=== PATIENT | female | born 1980 | race Caucasian/White ===

== ENCOUNTER 2020-01-28 12:01 | Emergency (ER) | payer BC, SELFPAY ==
[2020-01-28] VITALS (8 sets, daily range): BP systolic 128–197; BP diastolic 96–121; PULSE 82–103; RESP 15–20; TEMP 36.4–36.8; O2SAT 98–100
--- NOTE | 2020-01-28 12:30 | ECG_ITS ---
Measurements Intervals [place] Rate: 91 P: 16 ID: 133 QRS: -14 QRSD: 93 T: 23 QT: 350 QTc: 432 Interpretive Statements SINUS RHYTHM LOW QRS VOLTAGE IN PRECORDIAL LEADS VOLTAGE CRITERIA FOR LVH MINIMAL Q WAVES- HIGH LATERAL LEADS BORDERLINE ECG Electronically Signed On 01-28-2020 13:13:21 CDT by Reji Hughes D.O.
[2020-01-28] MEDS: ASPIRIN 81 MG CHEWABLE TABLET 324 MG PO (12:45)
[2020-01-28 12:47] LABS: Basophils Absolute Auto 0.1 K/mm3 (0.0-0.1); Eosinophils Absolute Auto 0.2 K/mm3 (0-0.3); Eosinophils Percent Auto 1.9 % (0-4.4); Hematocrit 39.7 % (37.0-47.0); Hemoglobin 13.5 g/dL (12.0-15.0); Immature Granulocyte Absolute 0.02 K/mm3 (0.00-0.031); Immature Granulocyte Percent A 0.3 % (0-0.5); Lymphocytes Absolute Auto 2.23 K/mm3 (0.9-3.2); Lymphocytes Percent Auto 28.8 % (18.3-44.2); Mean Corpuscular Volume 85.4 fl (80-100); Mean Platelet Volume 10.4 fl (7.4-10.4); Monocytes Absolute Auto 0.4 K/mm3 (0.1-0.6); Monocytes Percent Auto 4.8 % (2.6-8.5); Neutrophils Absolute Auto 4.9 K/mm3 (1.3-6.7); Neutrophils Percent Auto 63.2 % (45.5-73.1); Platelet Count Result 414 k/mm3 (150-375); Red Blood Count 4.65 M/mm3 (4.2-5.4); Red Cell Distribution Width 13.7 % (11.5-14.5); White Blood Count 7.8 K/mm3 (4.5-10.0)
[2020-01-28 12:49] LABS: Add Urine Microscopic? NO; Appearance Urine Clear (Clear); Bilirubin Urine Negative (Negative); Blood Urine Negative (Negative); Color Urine Yellow (Yellow); Glucose Urine UA Negative (Negative); Ketones Urine Negative (Negative); Leukocyte Esterase Ur Negative LEU/UL (Negative); Nitrate Urine Negative (Negative); Protein Urine Negative (Negative); Specific Grav Ur 1.016 (1.001-1.035); Urobilinogen Urine Negative mg/dL (<2.0)
--- NOTE | 2020-01-28 12:53 | ED.GENADULT ---
HPI - General Adult General Chief complaint: Recheck/Abnormal Lab/Rx Stated complaint: high BP Time Seen by Provider: 01/28/20 12:13 Source: patient Mode of arrival: ambulatory Limitations: no limitations History of Present Illness HPI narrative: 39 years old white female presented to the ED because of elevated blood pressure. Patient does not have history of hypertension. Patient have history of diabetes, polycystic ovarian syndrome, anxiety and depression. Patient reports a lot of stress lately. Currently she feels nauseated. Patient denies any fever, chills, vomiting, chest pain, shortness of breath, headache, back pain or shortness of breath. Patient reported that blood pressure was 164/112 4 days ago, home this morning was 175/121 Currently blood pressure is 170/108 Related Data Home Medications Medication Instructions Recorded Confirmed metformin 500 mg tablet 500 mg PO BID 04/22/19 06/03/19 vitamin #56-iron 35 mg 1 cap PO DAILY 04/22/19 06/03/19 and 5 mg-folic acid 1 mg-dha capsule labetalol 100 mg PO Q12H 01/28/20 Allergies Allergy/AdvReac Type Severity Reaction Status Date / Time No Known Allergies Allergy Verified 01/28/20 13:44 Review of Systems Review of Systems: Narrative: CONSTITUTIONAL: Denies fever, chills, or sweats. EYES: Denies visual changes, redness, or discharge. ENT: Denies rhinorrhea, congestion, sore throat, or otalgia. CARDIOVASCULAR: Denies chest pain, palpitations, or edema. RESPIRATORY: Denies cough or dyspnea. GASTROINTESTINAL: Denies abdominal pain, nausea, vomiting, or diarrhea. GENITOURINARY: Denies dysuria or hematuria. SKIN: Denies rash or itching. MUSCULOSKELETAL: Denies back pain, joint pain, or myalgia. NEUROLOGIC: Denies headache, numbness, or weakness. PSYCHIATRIC: Denies anxiety or depression. REPLACED BY [facility] Past Medical History Medical History Gestational diabetes Hypertension Hypothyroidism PCOS (polycystic ovarian syndrome) Vitamin D deficiency Family History Family History Father Suicide Depression Mother Depression Osteoporosis Anxiety Social History Social History Smoking status: Never smoker Alcohol intake: current Substance use: never Gender identity (if verbalized by the patient): Female Exam Narrative: Exam Narrative: General appearance: Well-developed, well-nourished Skin: Normal color Head: Normocephalic, nontraumatic Eyes: Clear conjunctiva ENT: Oropharynx normal, ears normal, nose normal Neck: Supple, nontender Chest and respiratory: Airway patent, no respiratory distress, no accessory muscle use Heart: Regular rate/rhythm Abdomen: Soft, nontender, no organomegaly, quiet bowel sounds Vascular: Normal peripheral pulses, normal capillary refill. Musculoskeletal: Normal range of motion, nontender back Neurologic: Alert and oriented ?3, ACADEMIC COORDINATOR is normal as tested, no gross motor deficit Course Course Emergency Course: Improving Consultations Consultation #1: Dr. Sesay/nurse practitioner, Agreed to increase losartan to 50 mg instead of 25 mg Date: 01/28/20 Time: 16:28 Vital Signs Vital signs: Vital Signs Temperature 36.4 C L 01/28/20 12:04 Pulse Rate 103 H 01/28/20 12:04 Respiratory Rate 18 01/28/20 12:04 Blood Pressure 197/121 H 01/28/20 12:04 Pulse Oximetry 100 01/28/20 12:04 Temperature 36.7 C 01/28/20 12:30 Pulse Rate 94 01/28/20 12:30 Respiratory Rate 16 01/28/20 12:30 Blood Pressure 162/105 H 01/28/20 12:30 Pulse Oximetry 98 01/28/20 12:30
[2020-01-28 12:55] LABS: Prothrombin Time 13.1 Seconds (11.1-14.7)
[2020-01-28 12:56] LABS: Partial Thromboplastin Time 30.5 SECONDS (22.3-36.8)
[2020-01-28 13:11] LABS: Troponin I < 0.012 ng/mL (0.000-0.034)
== END 2020-01-28 16:43 | disposition home or self-care (01) ==
PROVIDERS: Emergency Provider Emergency Medicine; PCP Internal Medicine
DX: I10 Essential (primary) hypertension (principal); F41.9 Anxiety disorder, unspecified; F32.9 Major depressive disorder, single episode, unspecified; E03.9 Hypothyroidism, unspecified
CPT/HCPCS: 36415; 81003; 84484; 85025; 85610; 85730; 93005; 96374; 99284; A9270; J2060

== ENCOUNTER 2021-08-20 15:16 | Outpatient (CLI) | payer BC, SELFPAY ==
--- NOTE | ~2021-08-20 | MM_ITS ---
EXAMINATION: MM screening jessica BI w genny HISTORY: Screening TECHNIQUE: Craniocaudal and mediolateral oblique 3-D tomosynthesis images were obtained and synthetic 2-D images were generated. CAD analysis was submitted and interpreted. COMPARISON: No prior mammogram is available for comparison at this institution. BREAST PARENCHYMAL COMPOSITION: There are scattered areas of fibroglandular density. FINDINGS: There is no evidence of suspicious mass, calcification, or architectural distortion to sugg est malignancy in either breast. There has been no suspicious interval change. IMPRESSION: 1. No mammographic evidence of malignancy. 2. Recommend routine screening mammography in one year. BI-RADS Category 1: Negative Reviewed, dictated and finalized at location A.
== END 2021-08-20 15:17 | disposition home or self-care (01) ==
LOC: ANHIMG 15:17
PROVIDERS: PCP Internal Medicine; Visit Provider Nurse Practitioner
DX: Z12.31 Encounter for screening mammogram for malignant neoplasm of breast (principal)
CPT/HCPCS: 77063; 77067

== ENCOUNTER 2022-02-11 16:09 | Emergency (ER) | payer BC, SELFPAY ==
[2022-02-11 16:28] VITALS: BP 172/109; PULSE 102; RESP 18; TEMP 36.7; O2SAT 93
[2022-02-11 16:44] LABS: Basophils Absolute Auto 0.1 K/mm3 (0.0-0.1); Basophils Percent Auto 0.7 % (0.2-1.2); Eosinophils Absolute Auto 0.1 K/mm3 (0-0.3); Eosinophils Percent Auto 0.7 % (0-4.4); Hemoglobin 13.1 g/dL (12.0-15.0); Immature Granulocyte Absolute 0.03 K/mm3 (0.00-0.031); Immature Granulocyte Percent A 0.3 % (0-0.5); Lymphocytes Absolute Auto 2.04 K/mm3 (0.9-3.2); Lymphocytes Percent Auto 19.7 % (18.3-44.2); Mean Corpuscular HGB Conc 33.6 g/dl (32-36); Mean Corpuscular Hemoglobin 29.1 pg (26-34); Mean Corpuscular Volume 86.7 fl (80-100); Monocytes Absolute Auto 0.5 K/mm3 (0.1-0.6); Monocytes Percent Auto 4.5 % (2.6-8.5); Neutrophils Absolute Auto 7.7 K/mm3 (1.3-6.7); Neutrophils Percent Auto 74.1 % (45.5-73.1); Platelet Count Result 390 k/mm3 (150-375); Red Cell Distribution Width 13.2 % (11.5-14.5); White Blood Count 10.3 K/mm3 (4.5-10.0)
[2022-02-11 17:02] LABS: Alanine Aminotransferase 23 U/L (6-35); Albumin Level 4.7 g/dL (3.5-5.1); Alkaline Phosphatase 83 U/L (38-126); Anion Gap 14 mmol/L (8-16); Aspartate Amino Transferase 23 U/L (14-36); Bilirubin,Total 0.5 mg/dL (0.2-1.3); Blood Urea Nitrogen 12 mg/dL (7-17); Calcium 9.4 mg/dL (8.4-10.2); Carbon Dioxide 23 mmol/L (22-30); Chloride 100 mmol/L (98-107); Estimated Glomerular Filt Rate > 60; Glucose 126 mg/dL (65-110); Potassium 3.9 mmol/L (3.4-5.0); Sodium 137 mmol/L (137-145)
--- NOTE | 2022-02-11 17:13 | ECG_ITS ---
Measurements Intervals [place] Rate: 90 P: 16 [place]: 138 QRS: -7 QRSD: 81 T: 28 QT: 362 QTc: 445 Interpretive Statements SINUS RHYTHM DELAYED PRECORDIAL R/S TRANSITION VOLTAGE CRITERIA FOR LVH BASELINE ARTIFACT- III, AVL, AVF BORDERLINE ECG NO PREVIOUS ECG AVAILABLE FOR COMPARISON Electronically Signed On 02-11-2022 21:39:05 CDT by Reji Hughes D.O.
--- NOTE | 2022-02-11 17:13 | ED.GENADULT ---
HPI - General Adult General Chief complaint: Headache Stated complaint: HTN Time Seen by Provider: 02/11/22 16:56 History of Present Illness HPI narrative: Patient is a 41-year-old female with a history of hypertension and diabetes here for evaluation of elevated blood pressures at home. Patient states that her rates today have been in the 150s over 100 range which is abnormal for her. She takes labetalol and losartan daily, notes intermittent compliance with these medications but did take them today. She otherwise feels well, denies any chest pain, confusion, fevers, chills, shortness of breath, leg swelling. She does note some intermittent headaches, but no blurry vision or recent head trauma. Related Data Allergies Allergy/AdvReac Type Severity Reaction Status Date / Time No Known Allergies Allergy Verified 11/05/21 09:05 Review of Systems Review of Systems: Gen: Denies fevers or chills Eyes: Denies eye pain or visual change ENT: Denies congestion Respiratory: Denies shortness of breath or cough CV: Denies chest pain or palpitations GI: Denies abdominal pain nausea, emesis or diarrhea : denies burning, urgency, frequency or hematuria Musculoskeletal: Denies back pain or muscle pain Neuro: Reports headaches. Denies numbness, tingling, weakness or focal weakness Skin: Denies rash Except as documented, all other systems reviewed and negative PMFSH Past Medical History Medical History Gestational diabetes Hypertension Hypothyroidism PCOS (polycystic ovarian syndrome) Vitamin D deficiency Family History Family History Father Suicide Depression Mother Depression Osteoporosis Anxiety Social History Social History Smoking status: Never smoker Alcohol intake: current Alcohol use details: Pt drinks socially. Substance use: never Gender identity (if verbalized by the patient): Female Exam Narrative: APPEARANCE: Well appearing, no pain in distress, well-nourished. Head: Normocephalic and atraumatic. EYES: Amblyopia on the left, patient states is chronic. PERRLA/EOMI, conjunctivae clear NOSE: No nasal drainage EARS: External ear normal in appearance THROAT: Oropharynx is clear. Mucous membranes are moist. NECK: Supple. No adenopathy, no masses. RESPIRATORY: Airway patent, respirations nonlabored. Clear to auscultation bilaterally, no rales, rhonchi, wheezing. CARDIOVASCULAR: Regular rate and rhythm without murmurs, rubs, or gallops. ABDOMINAL: Normoactive bowel sounds. Soft, nontender, nondistended. No rebound tenderness or guarding. MUSCULOSKELETAL: Extremities are warm and well-perfused. Moves all extremities well. No edema. NEURO: Cranial nerves II through XII intact. Finger-nose normal. Normal speech. SKIN: Skin is warm and dry. No rashes. PSYCHIATRIC: Normal affect/mood. Course Vital Signs Vital signs: Vital Signs Temperature 98.0 F 02/11/22 16:28 Pulse Rate 102 H 02/11/22 16:28 Respiratory Rate 18 02/11/22 16:28 Blood Pressure 172/109 H 02/11/22 16:28 Pulse Oximetry 93 02/11/22 16:28 Oxygen Delivery Room Air 02/11/22 16:28 Temperature 98.0 F 02/11/22 16:28 Pulse Rate 86 02/11/22 18:22 Respiratory Rate 18 02/11/22 18:22 Blood Pressure 130/92 H 02/11/22 18:22 Pulse Oximetry 98 02/11/22 18:22 Oxygen Delivery Room Air 02/11/22 17:15 Medical Decision Making [facility] Narrative Medical decision making narrative: Patient is a 41-year-old female with a history of hypertension diabetes here for evaluation of blood pressures in the 150s systolic at home today. She is otherwise asymptomatic without confusion, chest pain, dysuria, vision changes, focal neurologic deficit or shortness of breath. Patient's initial blood pressure is 172/109 but did resolve to 130/90 without interventi
[2022-02-11 17:15] VITALS: BP 173/106; PULSE 87; RESP 16; O2SAT 99
[2022-02-11 17:41] VITALS: BP 147/108; PULSE 84; RESP 18; O2SAT 98
[2022-02-11 17:54] LABS: Appearance Urine Cloudy (Clear); Bilirubin Urine Negative (Negative); Blood Urine Negative (Negative); Color Urine Yellow (Yellow); Glucose Urine UA Negative (Negative); Ketones Urine 1+ mg/dL (Negative); Leukocyte Esterase Ur 2+ LEU/UL (Negative); Nitrate Urine Negative (Negative); Protein Urine 1+ mg/dL (Negative); Urobilinogen Urine 0.2 mg/dL (<2.0)
[2022-02-11 17:58] LABS: Add Urine Microscopic? YES; Bacteria Urine Trace /hpf; Mucus Urine Rare /lpf; Squamous Epithelial Cell Urine Many /hpf (Few); WBC Urine 31-50 /hpf
[2022-02-11 18:22] VITALS: BP 130/92; PULSE 86; RESP 18; O2SAT 98
== END 2022-02-11 18:41 | disposition home or self-care (01) ==
PROVIDERS: Physician Assistant; Emergency Provider Emergency Medicine; PCP Internal Medicine
DX: I10 Essential (primary) hypertension (principal); T44.8X6A Underdosing of centrally-acting and adrenergic-neuron-blocking agents, initial encounter; T46.5X6A Underdosing of other antihypertensive drugs, initial encounter; Z91.128 Patient's intentional underdosing of medication regimen for other reason; E11.9 Type 2 diabetes mellitus without complications; E03.9 Hypothyroidism, unspecified; E28.2 Polycystic ovarian syndrome; E55.9 Vitamin D deficiency, unspecified; Z79.84 Long term (current) use of oral hypoglycemic drugs; R94.31 Abnormal electrocardiogram [ECG] [EKG]
CPT/HCPCS: 36415; 80053; 81001; 81025; 85025; 87086; 87088; 93005; 99283

== ENCOUNTER 2022-10-08 07:29 | Outpatient (CLI) | payer BC, SELFPAY ==
--- NOTE | ~2022-10-08 | MM_ITS ---
EXAMINATION: MM screening jessica BI w genny HISTORY: Screening mammogram TECHNIQUE: Craniocaudal and mediolateral oblique 3-D tomosynthesis images were obtained and synthetic 2-D images were generated. CAD analysis was submitted and interpreted. COMPARISON: 08/20/2021 bilateral screening mammogram BREAST PARENCHYMAL COMPOSITION: There are scattered areas of fibroglandular density. FINDINGS: There is no evidence of suspicious mass, calcification, or architectural distortion to sugg est malignancy in either breast. There has been no suspicious interval change. IMPRESSION: 1. No mammographic evidence of malignancy. 2. Recommend routine screening mammography in one year. BI-RADS Category 1: Negative Reviewed, dictated and finalized at location A.
== END 2022-10-08 07:30 | disposition home or self-care (01) ==
PROVIDERS: PCP Internal Medicine; Visit Provider Nurse Practitioner
DX: Z12.31 Encounter for screening mammogram for malignant neoplasm of breast (principal)
CPT/HCPCS: 77063; 77067

== ENCOUNTER 2023-05-13 18:51 | Emergency (ER) | payer BC, SELFPAY ==
--- NOTE | ~2023-05-13 | CT_ITS ---
EXAMINATION: CT brain wo con DATE: 05/13/2023 20:24 INDICATION: dizziness . TECHNIQUE: Computed tomography (CT) of the head was performed without intravenous contrast. The mA wa s adjusted according to patient size. Iterative reconstruction technique was employed. The dose-lengt h product was 605.33 mGy-cm. COMPARISON: None. FINDINGS: No acute intracranial hemorrhage or extra-axial fluid collection. No hydrocephalus, mass, or herniation. No acute ischemic infarct. Unremarkable dural venous sinus attenuation. No acute osseous abnormality. The aerated spaces are clear. IMPRESSION: No acute intracranial process. Reviewed, dictated and finalized at location K. CONSULTANT
--- NOTE | ~2023-05-13 | XR_ITS ---
EXAMINATION: XR chest 1V Exam Date/Time: 05/13/2023 20:15 WOOD ROUTER HAND HISTORY: weakness, DIZZINESS X 1 DAY Comparison: None. RESULT: Lines, tubes, and devices: None. Lungs and pleura: Clear. Cardiomediastinal silhouette: Normal. Other: No acute osseous or upper abdominal finding. IMPRESSION: No acute cardiopulmonary process. Reviewed, dictated and finalized at location K. ROUTER HAND
[2023-05-13 18:53] VITALS: BP 196/125; PULSE 95; RESP 20; TEMP 36.2; O2SAT 100
[2023-05-13 19:24] VITALS: BP 187/119
[2023-05-13] MEDS: MECLIZINE HCL 25 MG TABLET PO (20:10)
[2023-05-13] MEDS: PROCHLORPERAZINE EDISYLATE 10 MG/2 ML VIAL IV PUSH (20:10)
[2023-05-13] MEDS: SODIUM CHLORIDE 0.9% IV 1,000 ML 999 ML IV CONT (20:11)
[2023-05-13 20:15] LABS: Basophils Absolute Auto 0.1 K/mm3 (0.0-0.1); Basophils Percent Auto 0.7 % (0.2-1.2); Eosinophils Absolute Auto 0.1 K/mm3 (0-0.3); Eosinophils Percent Auto 0.5 % (0-4.4); Hematocrit 41.1 % (37.0-47.0); Hemoglobin 13.6 g/dL (12.0-15.0); Immature Granulocyte Absolute 0.04 K/mm3 (0.00-0.031); Immature Granulocyte Percent A 0.4 % (0-0.5); Lymphocytes Absolute Auto 1.69 K/mm3 (0.9-3.2); Lymphocytes Percent Auto 15.2 % (18.3-44.2); Mean Corpuscular HGB Conc 33.1 g/dl (32-36); Mean Corpuscular Hemoglobin 28.2 pg (26-34); Mean Corpuscular Volume 85.3 fl (80-100); Monocytes Absolute Auto 0.6 K/mm3 (0.1-0.6); Monocytes Percent Auto 5.1 % (2.6-8.5); Neutrophils Absolute Auto 8.7 K/mm3 (1.3-6.7); Neutrophils Percent Auto 78.1 % (45.5-73.1); Platelet Count Result 420 k/mm3 (150-375); Red Blood Count 4.82 M/mm3 (4.2-5.4); Red Cell Distribution Width 13.1 % (11.5-14.5); White Blood Count 11.1 K/mm3 (4.5-10.0)
[2023-05-13 20:25] LABS: Alanine Aminotransferase 38 U/L (6-35); Albumin Level 4.8 g/dL (3.5-5.1); Alkaline Phosphatase 98 U/L (38-126); Anion Gap 13 mmol/L (8-16); Aspartate Amino Transferase 31 U/L (14-36); Bilirubin,Total 0.5 mg/dL (0.2-1.3); Blood Urea Nitrogen 12 mg/dL (7-17); Calcium 9.5 mg/dL (8.4-10.2); Carbon Dioxide 24 mmol/L (22-30); Chloride 100 mmol/L (98-107); Estimated CRCL calculation 99 ml/min; Estimated Glomerular Filt Rate > 60; Glucose 139 mg/dL (65-110); Magnesium 1.8 mg/dL (1.6-2.3); Sodium 137 mmol/L (137-145)
[2023-05-13 20:26] LABS: INR 0.9; Lactic Acid Reflex 1.9 mmol/L (0.7-2.0); Partial Thromboplastin Time 30.3 SECONDS (22.3-36.8); Prothrombin Time 12.9 Seconds (11.1-14.7)
[2023-05-13 20:39] LABS: Troponin I < 0.012 ng/mL (0.000-0.034)
[2023-05-13 20:40] LABS: Appearance Urine Clear (Clear); Bilirubin Urine Negative (Negative); Blood Urine Negative (Negative); Color Urine Yellow (Yellow); Glucose Urine UA Negative (Negative); Ketones Urine 1+ mg/dL (Negative); Leukocyte Esterase Ur Negative LEU/UL (Negative); Nitrate Urine Negative (Negative); Protein Urine Negative (Negative); Specific Grav Ur 1.011 (1.001-1.035); Urobilinogen Urine 0.2 mg/dL (<2.0); pH Urine 7.5 (5.0-9.0)
[2023-05-13 20:43] LABS: Add Urine Microscopic? NO
[2023-05-13 20:45] LABS: Procalcitonin 0.1 ng/mL
--- NOTE | 2023-05-13 21:22 | ED.GENADULT ---
HPI - General Adult General Chief complaint: Dizziness Stated complaint: dizzy spells Time Seen by Provider: 05/13/23 19:33 History of Present Illness HPI narrative: Patient 42-year-old female who presents emergency department with chief complaint of dizziness. Patient has prior history of hypertension and reports that over the last couple of days she has had episodes of a rotational feeling in her head. The patient reports that she had 1 episode of vomiting reports normal hearing denies chest pain denies shortness of breath reports that it is worsened whenever she turns her head particularly to the left Related Data Allergies Allergy/AdvReac Type Severity Reaction Status Date / Time No Known Allergies Allergy Verified 05/13/23 19:31 Review of Systems Review of Systems: A 10 system review of systems was completed on the patient and is negative except for what is stated in the HPI. Nursing and ancillary documentation was reviewed. PMFSH Past Medical History Medical History Gestational diabetes Hypertension Hypothyroidism PCOS (polycystic ovarian syndrome) Vitamin D deficiency Family History Family History Father Suicide Depression Mother Depression Osteoporosis Anxiety Social History Social History Smoking status: Never smoker Alcohol intake: current Alcohol use details: Pt drinks socially. Substance use: never Gender identity (if verbalized by the patient): Female Exam Narrative: GENERAL: Well-appearing, well-nourished, and in no acute distress. HEAD: Normocephalic, atraumatic. EYES: PERRLA and EOMI. ENT: Nares clear, no rhinorrhea or epistaxis. Mucous membranes moist. NECK: Supple. CHEST: Clear to auscultation. No respiratory distress. HEART: Regular rate and rhythm. No murmur heard. Normal peripheral pulses. ABDOMEN: Soft, nontender, nondistended, normal active bowel sounds. EXTREMITIES: Normal range of motion. No edema. SKIN: Warm, dry, no rash. NEURO: No focal deficits. Alert and oriented x3. Positive Hallpike to left PSYCH: Normal mood and affect. Course Vital Signs Vital signs: Vital Signs Temperature 36.2 C L 05/13/23 18:53 Pulse Rate 95 05/13/23 18:53 Respiratory Rate 20 05/13/23 18:53 Blood Pressure 196/125 H 05/13/23 18:53 Pulse Oximetry 100 05/13/23 18:53 Oxygen Delivery Room Air 05/13/23 18:53 Temperature 36.2 C L 05/13/23 18:53 Pulse Rate 95 05/13/23 18:53 Respiratory Rate 20 05/13/23 18:53 Blood Pressure 187/119 H 05/13/23 19:24 Pulse Oximetry 100 05/13/23 18:53 Oxygen Delivery Room Air 05/13/23 18:53 Medical Decision Making MDM Narrative Medical decision making narrative: Differential diagnosis includes vertigo, electrolyte abnormality, dehydration, UTI, CT head showed no evidence of acute abnormality, chest x-ray was negative laboratory studies were within normal limits. Patient is feeling much better after receiving Antivert fluids and antiemetics Vital Signs Vital Signs: Vital Signs Temperature 36.2 C L 05/13/23 18:53 Pulse Rate 95 05/13/23 18:53 Respiratory Rate 20 05/13/23 18:53 Blood Pressure 196/125 H 05/13/23 18:53 Pulse Oximetry 100 05/13/23 18:53 Oxygen Delivery Room Air 05/13/23 18:53 Temperature 36.2 C L 05/13/23 18:53 Pulse Rate 95 05/13/23 18:53 Respiratory Rate 20 05/13/23 18:53 Blood Pressure 187/119 H 05/13/23 19:24 Pulse Oximetry 100 05/13/23 18:53 Oxygen Delivery Room Air 05/13/23 18:53 Lab Data 05/13/23 20:07 05/13/23 20:07 Labs: Lab Results 05/13/23 05/13/23 Range/Units 20:07 20:34 WBC 11.1 H (4.5-10.0) K/mm3 RBC 4.82 (4.2-5.4) M/mm3 Hgb 13.6 (12.0-15.0) g/dL Hct 41.1 (37.0-47.0) % MCV 85
[2023-05-13 22:38] VITALS: BP 166/100; PULSE 92; RESP 16; O2SAT 100
== END 2023-05-13 22:39 | disposition home or self-care (01) ==
PROVIDERS: Emergency Provider Emergency Medicine; PCP Internal Medicine
DX: R42 Dizziness and giddiness (principal); I10 Essential (primary) hypertension; E03.9 Hypothyroidism, unspecified; E28.2 Polycystic ovarian syndrome; E55.9 Vitamin D deficiency, unspecified; Z79.84 Long term (current) use of oral hypoglycemic drugs
CPT/HCPCS: 36415; 70450; 71045; 80053; 81003; 81025; 83605; 83735; 84145; 84484; 85025; 85610; 85730; 96361; 96374; 99284; A9270; J0780; J7030

== ENCOUNTER 2023-12-11 07:17 | Outpatient (CLI) | payer BC, SELFPAY ==
--- NOTE | ~2023-12-11 | MM_ITS ---
EXAMINATION: MM screening jessica BI w genny HISTORY: Screening TECHNIQUE: Craniocaudal and mediolateral oblique 3-D tomosynthesis images were obtained and synthetic 2-D images were generated. CAD analysis was submitted and interpreted. COMPARISON: Comparison to multiple prior studies sequentially, with oldest reviewed study dated 12/2021. BREAST PARENCHYMAL COMPOSITION: Dense: The breasts are extremely dense, which lowers the sensitivity of mammography. FINDINGS: There is no evidence of suspicious mass, calcification, or architectural distortion to sugg est malignancy in either breast. There has been no suspicious interval change. IMPRESSION: 1. No mammographic evidence of malignancy. 2. Recommend routine screening mammography in one year. BI-RADS Category 1: Negative Reviewed, dictated and finalized at location B.
== END 2023-12-11 07:18 | disposition home or self-care (01) ==
LOC: ANHIMG 07:18
PROVIDERS: PCP Nurse Practitioner; Visit Provider Obstetrics & Gynecology Gynecology
DX: Z12.31 Encounter for screening mammogram for malignant neoplasm of breast (principal)
CPT/HCPCS: 77063; 77067

== ENCOUNTER 2024-11-23 11:49 | Outpatient (CLI) | payer BC, SELFPAY ==
--- NOTE | ~2024-11-23 | US_ITS ---
Thyroid ultrasound. Clinical History: Hypothyroid Findings: Real-time sonography of the thyroid gland was performed. The right lobe measures 4.5 x 1.6 x 1.5 cm. The left lobe measures 3.8 x 0.6 x 1.1 cm. The isthmus is 3 mm in AP diameter. 3 mm cystic lesion with focal hyperechoic colloid present in the right midpole. 4 mm cystic nodule wi th focal hyperechoic colloid present at the left midpole. There is an additional 3 mm cystic nodule a t the left lower pole. Impression: Subcentimeter benign cystic nodules in the thyroid gland, as above.. Reviewed, dictated and finalized at location . Impression: Subcentimeter benign cystic nodules in the thyroid gland, as above..
== END 2024-11-23 11:50 | disposition home or self-care (01) ==
LOC: MICIMG 11:50
PROVIDERS: PCP Clinical Nurse Specialist; Visit Provider Clinical Nurse Specialist
DX: E04.2 Nontoxic multinodular goiter (principal); E03.9 Hypothyroidism, unspecified
CPT/HCPCS: 76536

== ENCOUNTER 2024-12-11 08:18 | Outpatient (CLI) | payer BC, SELFPAY ==
--- NOTE | ~2024-12-11 | MM_ITS ---
EXAMINATION: MM screening jessica BI w genny HISTORY: Screening TECHNIQUE: Craniocaudal and mediolateral oblique 3-D tomosynthesis images were obtained and synthetic 2-D images were generated. CAD analysis was submitted and interpreted. COMPARISON: Comparison to multiple prior studies sequentially, with oldest reviewed study dated 12/2021. BREAST PARENCHYMAL COMPOSITION: Not dense: There are scattered areas of fibroglandular density. FINDINGS: There is no evidence of suspicious mass, calcification, or architectural distortion to sugg est malignancy in either breast. There has been no suspicious interval change. IMPRESSION: 1. No mammographic evidence of malignancy. 2. Recommend routine screening mammography in one year. BI-RADS Category 1: Negative Reviewed, dictated and finalized at location []
--- OUTSIDE RECORDS SUMMARY | 2024-12-11 08:28 | XMS_ITS | Clinical Summary ---
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
--- OUTSIDE RECORDS SUMMARY | 2024-12-11 08:28 | XMS_ITS | Encounter Summary ---
Author Organization [facility] Address 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
--- OUTSIDE RECORDS SUMMARY | 2024-12-11 08:28 | XMS_ITS | Encounter Summary ---
Author Organization [facility] Address [address] [place] [address] Care Team Providers Care Relish Blender Name Role Phone Jos Sesay DO Primary Care Provider Encounter Details Date Type Department Care Team (Late st Contact Info) Description 03/14/2006 Outpatient Historical [facility] ([facility]) [address] [place] [id number] Antonio Richards MD NO ADDRESS ON FILE Social History Tobacco Use Types Packs/Day Years Used Date Smoking Tobacco: Never Assessed Comments Unknown Sex and Gender Information Value Date Recorded Sex Assigned at Not on file Legal Sex Female 3:17 AM LICENSED GUIDE Gender Identity Not on file Sexual Orientation Not on file documented as of this encounter Plan of Treatment Not on file documented as of this encounter Visit Diagnoses Not on filedocumented in this encounter Care Teams Relish Blender Relationship Specialty Start Date End Date Jos Sesay DO PCP - General Internal Medicine 11/28/16 documented as of this encounter
== END 2024-12-11 08:19 | disposition home or self-care (01) ==
LOC: CHSIMG 08:20
PROVIDERS: PCP Clinical Nurse Specialist; Visit Provider Obstetrics & Gynecology Gynecology
DX: Z12.31 Encounter for screening mammogram for malignant neoplasm of breast (principal)
CPT/HCPCS: 77063; 77067